=== PATIENT | female | born 1980 | race African-American/Black ===

== ENCOUNTER 2018-08-04 08:00 | Inpatient (IN) | payer MEDICARE, MEDICAID ==
[2018-08-04 11:48] VITALS: BMI 28.3
--- NOTE | 2018-08-17 01:44 | HP ---
DATE OF ADMISSION: 08/17/2018 REASON FOR ADMISSION: Chronic pelvic pain with severe dysmenorrhea. SCHEDULED PROCEDURE: TLH and bilateral salpingectomy. HISTORY OF PRESENT ILLNESS: Ms. Mateo Hollingsworth is a 37-year-old 1, para 1, status post C-secti on x1 with BTL, who has long known to my practice. She represented as a new patient in May and cheryl res definitive surgical management of the longstanding chronic pelvic pain. OB AND STATION CHIEF HISTORY: and ovarian cyst, status post BTL. No history of dysplasia or STD. PAST MEDICAL HISTORY: Chronic pelvic pain, lupus like syndrome, but no evidence of SLE. PAST SURGICAL HISTORY: , ovarian cyst and cholecystectomy. SOCIAL HISTORY: Denies tobacco, alcohol, or IV drug abuse. ALLERGIES: COMPAZINE, FLAGYL, TRAMADOL. MEDICATIONS: Colace. PHYSICAL EXAMINATION: GENERAL: Black female. VITAL SIGNS: Height 5 feet, weight 140, BMI 27, blood pressure 130/84. HEENT: Within normal limits. LUNGS: Clear to auscultation bilaterally. HEART: Regular rate and rhythm. BREASTS: No masses bilaterally. ABDOMEN: Soft, nontender, no rebound or guarding. PELVIC: Vulva without lesions. Vagina without discharge. Cervix, parous, uterus anteverted, 6-8 we ek size, boggy, discomfort on exam without masses noted. EXTREMITIES: Without clubbing, cyanosis or edema. IMPRESSION: Chronic pelvic pain, unresponsive to medical management, status post bilateral tubal lig ation. PLAN: Discussed with patient options. We will proceed with TLH, bilateral salpingectomy. The patie nt understands risks and benefits of procedure. We will perform appropriate antibiotic and DVT proph ylaxis.
[2018-08-17] MEDS ORDERED: Bupivacaine HCl 0.5%/Epinephrine 1:200,000/PF 30 ml Vial ONE (07:21)
[2018-08-17] MEDS ORDERED: Fentanyl 100 MCG/2 ML VIAL ONE ×2 (07:26→10:23)
[2018-08-17] MEDS ORDERED: HYDROmorphone 2 MG/ML VIAL ONE (07:27)
[2018-08-17 07:30] LABS: Hemoglobin 12.7 g/dL (12.0-16.0); Mean Corpuscular HGB CONC 33.6 g/dL (32.0-36.0); Mean Corpuscular Hemoglobin 31.1 pg (27.0-31.0); Mean Corpuscular Volume 92.5 fL (78.0-98.0); Mean Platelet Volume 6.9 fL (7.4-10.4); Platelet Count 292 thou/uL (130-400); RBC Distribution Width 11.1 % (11.5-14.5); Red Blood Cell (RBC) Count 4.09 mill/uL (4.20-5.40); White Blood Cell (WBC) Count 6.4 thou/uL (4.8-10.8)
[2018-08-17] MEDS ORDERED: Famotidine/PF 20 mg/2ml Vial ONE (07:34)
[2018-08-17] MEDS ORDERED: Gabapentin 300 MG CAP ONE (07:34)
[2018-08-17] MEDS ORDERED: CEFAZOLIN/Water 2 GM/20 ML SYRINGE ONE (07:34)
[2018-08-17] MEDS ORDERED: CeleCOXIB 100 MG CAP ONE (07:36)
[2018-08-17 07:39] LABS: BHCG - Serum Negative (NEGATIVE); Pregs Control Background? CLEAR/WHITE (CLR/WHITE); Pregs Control Bar Appear? YES (CONTROL BAR)
[2018-08-17] MEDS ORDERED: Ondansetron HCl/PF 4 MG/2 ML Vial ONE ×2 (07:53→15:45)
[2018-08-17] MEDS ORDERED: Midazolam HCl 2 mg/2 ml Vial ONE (07:53)
[2018-08-17] MEDS ORDERED: HYDROmorphone 2 MG/ML VIAL SLOW IVP PRN (09:42)
[2018-08-17] MEDS ORDERED: Promethazine HCl 25 MG/ML VIAL SLOW IVP PRN (09:42)
[2018-08-17] MEDS ORDERED: Promethazine HCl 25 MG/ML VIAL IM PRN (09:42)
[2018-08-17] MEDS ORDERED: Meperidine HCl/PF 25 MG/ML VIAL ONE (10:09)
[2018-08-17] MEDS ORDERED: Morphine 4 MG/ML Carpuject SLOW IVP PRN (10:50)
[2018-08-17] MEDS ORDERED: Zolpidem Tartrate 5 MG TAB PO PRN (10:50)
[2018-08-17] MEDS ORDERED: Ondansetron HCl/PF 4 MG/2 ML Vial IVP PRN (10:50)
--- NOTE | 2018-08-17 11:06 | OP ---
DATE OF PROCEDURE: 08/17/2018 PREOPERATIVE DIAGNOSES: Chronic pelvic pain, menorrhagia. POSTOPERATIVE DIAGNOSES: Chronic pelvic pain, menorrhagia. PROCEDURE: Total laparoscopic hysterectomy with bilateral salpingectomy. SURGEON: Simon Kendall M.D. SOCIAL SERVICES ASSISTANT: Marielle Ceja D.O. ANESTHESIA: General endotracheal. ESTIMATED BLOOD LOSS: Less than 50 mL. DRAINS: Pérez to gravity. MEDICATIONS: Two grams Ancef preincision. DVT PROPHYLAXIS: SCDs. OPERATIVE FINDINGS: 1. Approximately 6-8 week size uterus findings consistent with adenomyosis. 2. Status post mid segment salpingectomy bilaterally. 3. Normal appearing ovaries. 4. Hemostasis, clear urine at the end of the procedure. DISPOSITION: Recovery in good condition. DESCRIPTION OF OPERATIVE PROCEDURE: After obtaining proper consent, the patient was taken to the ope rating room where general endotracheal anesthesia achieved without difficulty. The patient prepped a nd draped in dorsal lithotomy in Rohit stirrups. Side hand speculum placed in vagina, cervix identif ied, grasped with a tenaculum at 12 o'clock. Uterus sounded to 8 cm and a PARVEEN manipulator with an 8 cm obturator and 3.5 cm vaginal ice cream vault worker was introduced without difficulty. Pérez catheter was pl aced and placed in the abdominal cavity for backfilling intraoperatively. Speculum and tenaculum rem zeina. Colored Liquid Plastic Applier turned his attention to the abdominal portion of the procedure. Five mL of Marcaine injected at the superior aspect of the umbilicus at a previous laparoscopic incision level. A 12 mm skin incision made, a Veress needle placed in the abdominal cavity. Insufflation carried out with ca rbon dioxide to a max pressure of 15, volume approximately 3.5 liters. A 12 mm trocar was introduced and confirmation entry into the cavity without trauma to the underlying viscera. The patient was pl aced in steep Trendelenburg position. Right and left lateral robot trocars were placed lateral epiga stric vessels and an 11 mm tutoring assistant port in the right upper quadrant. The da Franchesca robot was docked with monopolar scissors in the right hand and bipolar fenestrated forceps in the left. Omental adhe sions to the anterior abdominal wall between the umbilicus and the symphysis pubis were taken down us ing blunt and sharp dissection. Adhesions of the left colon to the left pelvic side wall just above the level of the IP were taken down using sharp dissection and the same at the level of the cecum on the right. The mesosalpinx on the right was mobilized coagulated and transected and excising the rem ainder portion of the right fallopian tube. It was removed intact, sent for pathology. The uteroova denice on the right was coagulated and transected to the broad and the round down to the level of the i nternal cervical os. The peritoneum was opened up anterior and posteriorly. Uterine vessels visuali zed and the vesicouterine peritoneum taken down anteriorly off the cervix and upper vagina. Bladder was backfilled identified and noted to be well away from the operative field. The uterine vessels we re coagulated on this side after skeletonization. Attention was turned to the left where the identic al procedure was done on the right was done including coagulation and transecting the mesosalpinx, re moving the tube, coagulating and transecting the utero-ovarian round, and cardinals down to the level of the internal cervical os. Skeletization of uterine vessels carried on this side. Anteriorly and posteriorly the vagina was entered at 12 and 6 o'clock and extended from 12 to 10 and 12 to 2 and fr om 6 to 4 and 6 to 8 o'clock, coagulation and transection was taken of the uterine vessels at the lev el of the cervix and the specimen amputated and pulled in the vagina to maintain pneumoperitoneum. S uction irrigation carried out which revealed good hemostasis. Vagina was closed using a running cont inuous 0 PDS Stratafix suture in a 2-layer closure technique. Suction irrigation was carried out. G ood hemostasis noted. ____ applied across all raw surfaces, da Franchesca instruments removed. Robot und ocked. Abdomen desufflated of carbon dioxide. Fascia reapproximated at the umbilicus using a 0 Vicr yl on a UR-5 and skin reapproximated x4 using 4-0 Monocryl and Dermabond. Specimen was removed from the vagina. The vagina was inspected and noted be dry. The patient was awakened, extubated, and jerman en to the recovery room in good condition.
[2018-08-17] MEDS: Sodium Chloride 0.9% 1,000 ML IV SCH (11:35)
[2018-08-17] MEDS: HYDROmorphone 2 MG TAB PO PRN ×2 (12:10→18:52)
[2018-08-17] MEDS: cloNIDine 0.1 MG TAB PO PRN ×3 (13:19→20:57)
[2018-08-17] MEDS: Acetaminophen 1,000 MG in Premix Bag 1 BAG IVPB SCH ×2 (14:22→20:24)
[2018-08-17] MEDS ORDERED: Lidocaine 1% PF 5 ML VIAL ONE (15:45)
[2018-08-17] MEDS ORDERED: Glycopyrrolate 0.2 MG/ML 5 ML SYRINGE ONE (15:45)
[2018-08-17] MEDS ORDERED: Dexamethasone 20 MG/5 ML VIAL ONE (15:45)
[2018-08-17] MEDS ORDERED: Succinylcholine Chloride 20 MG/ML 10 ml SYRINGE FS ONE (15:45)
[2018-08-17] MEDS ORDERED: PROPOFOL 200 MG/20 ML VIAL ONE (15:45)
[2018-08-17] MEDS: CeleCOXIB 100 MG CAP PO SCH (20:25)
[2018-08-17] MEDS: Simethicone Chewable 80 MG TAB PO PRN (20:25)
[2018-08-17] MEDS ORDERED: Morphine 2 MG/ML SYRINGE SLOW IVP PRN ×2 (20:30)
[2018-08-17] MEDS ORDERED: Sodium Chloride 0.9% 20 ML ONE (21:43)
--- NOTE | 2018-08-18 00:37 | PDOC.EVN ---
Event Note - Event Note Event Note: OBGYN On-Call: Notified that several IVs have become not functional. Last reattempt also blown IV access. I will switch to po and IM options rather than IV for lack of IV access.
[2018-08-18] MEDS: HYDROmorphone 2 MG TAB PO PRN ×2 (02:34→08:35)
[2018-08-18] MEDS: Sodium Chloride 0.9% 1,000 ML IV SCH (03:32)
[2018-08-18] MEDS: Acetaminophen 500 MG TAB PO SCH ×2 (03:35→07:49)
[2018-08-18] MEDS: Simethicone Chewable 80 MG TAB PO PRN ×2 (05:12→10:03)
[2018-08-18 06:39] LABS: Hemoglobin 11.3 g/dL (12.0-16.0); Mean Corpuscular HGB CONC 33.6 g/dL (32.0-36.0); Mean Corpuscular Hemoglobin 31.4 pg (27.0-31.0); Mean Corpuscular Volume 93.5 fL (78.0-98.0); Mean Platelet Volume 7.2 fL (7.4-10.4); Platelet Count 252 thou/uL (130-400); Red Blood Cell (RBC) Count 3.59 mill/uL (4.20-5.40); White Blood Cell (WBC) Count 11.2 thou/uL (4.8-10.8)
--- NOTE | 2018-08-18 07:00 | DIS ---
DATE OF ADMISSION: 08/17/2018 DATE OF DISCHARGE: 08/18/2018 SUMMARY OF HOSPITAL COURSE: The patient was admitted and underwent a total laparoscopic hysterectomy , bilateral salpingectomy for chronic pelvic pain. She had an unremarkable intraoperative course. H ematocrit went from 38 to 34% postoperatively. Vital signs are stable. Patient is voiding well. LUNGS: Clear to auscultation bilaterally. HEART: Regular rate and rhythm. ABDOMEN: Soft, nontender, without rebound or guarding. Bowel sounds in all 4 quadrants. Incisions intact without erythema and her perineum is dry. EXTREMITIES: Without clubbing, cyanosis or edema. The patient will be discharged home. Prescription for [place] 10 will be sent to [facility] in [place] per the patient's request. We will follow up the patient at [facility] [place] in 4 weeks. Patho logy pending from [facility].
[2018-08-18] MEDS: CeleCOXIB 100 MG CAP PO SCH (07:49)
[2018-08-18 08:21] VITALS: BP 140/82; TEMP 98.8
== END 2018-08-18 10:19 | disposition home or self-care (01) | DRG 743 ==
LOC: SURG A 08-17 06:23 → 3SE 08-17 10:47
PROVIDERS: ADMIT Obstetrics & Gynecology; ATTEND Obstetrics & Gynecology
PROC: 0UT9FZZ Resection of Uterus, Via Natural or Artificial Opening With Percutaneous Endoscopic Assistance (ICD-10-PCS; principal; 2018-08-17)
PROC: 0UT7FZZ Resection of Bilateral Fallopian Tubes, Via Natural or Artificial Opening With Percutaneous Endoscopic Assistance (ICD-10-PCS; 2018-08-17)
DX: N94.6 Dysmenorrhea, unspecified (principal); R10.2 Pelvic and perineal pain; G89.29 Other chronic pain
CPT/HCPCS: 36415; 84703; 85027; 86850; 86900; 86901; 88307; A4216; J0131; J0670; J1100; J1170; J2001; J2175; J2250; J2270; J2405; J2704; J3010; S0028